=== PATIENT | male | born 1985 | race Caucasian/White ===

== ENCOUNTER 2017-04-15 12:13 | Emergency (ER) | payer OTHER ==
[2017-04-15 12:27] VITALS: BP 158/96; PULSE 67; RESP 18; TEMP 98
--- NOTE | 2017-04-15 12:48 | ED ---
General Adult HPI - General Chief complaint: Extremity Injury, Upper Stated complaint: elbow injury Time Seen by Provider: 04/15/17 12:45 Source: patient, RN notes reviewed Mode of arrival: ambulatory Limitations: no limitations - History of Present Illness Initial comments: 31-year-old male presents to the emergency department with a chief complaint of left elbow pain. Patient is long when she days ago and since he continues to have left elbow pain and swelling to use concern. Patient states her son injury from the incident. Patient states it hurts to move the elbow. Patient denies any headache injury. Patient denies any other symptoms at this time. Patient denies any recent fever, chills, shortness of breath, chest pain, back pain, abdominal pain, nausea vomiting, numbness or tingling, dysuria or hematuria, constipation or diarrhea, headaches or visual changes, or any other current symptoms. - Related Data Allergies Allergy/AdvReac Type Severity Reaction Status Date / Time No Known Allergies Allergy Verified 04/15/17 12:27 Review of Systems ROS Statement: Those systems with pertinent positive or pertinent negative responses have been documented in the HPI. ROS Other: All systems not noted in ROS Statement are negative. Past Medical History Past Medical History: No Reported History History of Any Multi-Drug Resistant Organisms: None Reported Past Surgical History: No Surgical Hx Reported Past Psychological History: No Psychological Hx Reported Smoking Status: Current every day smoker Past Alcohol Use History: Occasional Past Drug Use History: None Reported General Exam - General Exam Comments Initial Comments: General: The patient is awake and alert, in no distress, and does not appear acutely ill. Neck: The neck is supple, there is no tenderness. Cardiovascular: There is a regular rate and rhythm. No murmur, rub or gallop is appreciated. Respiratory: Lungs are clear to auscultation, respirations are non-labored, breath sounds are equal. No wheezes, stridor, rales, or rhonchi. Musculoskeletal: Sensation intact with 2+ pulses at the left upper x-ray compared from range of motion of left shoulder and left wrist. Patient does have limited range of motion of left elbow due to pain with associated swelling and tenderness over the radius proximally. Neurological: CN II-XII intact, There are no obvious motor or sensory deficits. Coordination appears grossly intact. Speech is normal. Skin: Skin is warm and dry and no rashes or lesions are noted. Psychiatric: Normal mood and affect. Limitations: no limitations Course Vital Signs 04/15/17 12:24 Temperature 98.0 F Pulse Rate 67 Respiratory 18 Rate Blood Pressure 158/96 O2 Sat by Pulse 99 Oximetry Procedures - Orthopedic Splinting/Casting Injury #1 Side: left Upper Extremity Injury Location: elbow Upper Extremity Immobilizer: posterior splint (Long-arm) Medical Decision Making - Medical Decision Making 31-year-old male presents with a history of left radial head fracture. This time patient was placed in splint.follow with Orthopedic discussed return parameters on patient's questions. All questions have been answered. He will be discharged. - Radiology Data Radiology results: image reviewed Interpreted by me: Interpreted by me: Left elbow xray: 3 view, radial head fracture, no dislocation , no bony lesions, no foreign bodies, no soft tissue damage. Waiting official radiology read. Disposition Clinical Impression: Left elbow fracture Disposition: HOME SELF-CARE Condition: Stable Instructions: Elbow Fracture in Adults (ED) Additional Instructions: Please use medication as discussed. Please follow up with family doctor if symptoms have not improved over the next two days. Please return to the emergency room if your symptoms increase or worsen or for any other concerns. Referrals: Azar Shay MD [STAFF PHYSICIAN] - 1-2 days Time of Disposition: 12:48
--- NOTE | 2017-04-15 12:50 | XR ---
EXAMINATION TYPE: XR elbow complete LT DATE OF EXAM: 04/15/2017 CLINICAL HISTORY: Fall and elbow pain TECHNIQUE: Frontal, lateral and oblique images of the left elbow are obtained. COMPARISON: None FINDINGS: There is a minimally displaced fracture of the radial head and its lateral margin extending intra-articularly. Displacement is approximately 2.5 cm bilaterally. This fracture is noncomminuted and associated with a joint effusion within the elbow. Overlying soft tissue swelling is present. IMPRESSION: Noncomminuted, minimally displaced intra-articular radial head fracture with associated s oft tissue swelling and joint effusion.
== END 2017-04-15 13:09 | disposition home or self-care (01) ==
LOC: EC 12:13
DX: S52.122A Displaced fracture of head of left radius, initial encounter for closed fracture (principal); F17.200 Nicotine dependence, unspecified, uncomplicated; W17.89XA Other fall from one level to another, initial encounter
CPT/HCPCS: 29105; 99283

== ENCOUNTER 2021-10-19 08:10 | Emergency (ER) | payer OTHER ==
[2021-10-19 08:27] VITALS: RESP 18
[2021-10-19] MEDS ORDERED: LIDOCAINE 1% INJ 10MG/ML (20 ML MDV) SQ ONE (08:55)
[2021-10-19] MEDS ORDERED: DIPH,PERTUS(ACELL)TETVAC-LF 0.5 ML VIAL IM ONE (08:55)
[2021-10-19] MEDS ORDERED: BACITRACIN OINT 1 EACH PACKET TOPICAL ONE (09:21)
--- NOTE | 2021-10-19 09:30 | ED ---
General Adult HPI - General Chief complaint: WOUNDLAC Stated complaint: Hand injury Time Seen by Provider: 10/19/21 08:48 Source: patient, RN notes reviewed Mode of arrival: ambulatory Limitations: no limitations - History of Present Illness Initial comments: This is a 36-year-old male presents emergency Department with chief complaint laceration to his left hand. Patient states that he was trying to remove the knob cut a from a knife states that he it causes a laceration of his left hand by his fifth digit. He states there is a large laceration with moderate bleeding and no paresthesias no decreased range of motion but digit she's unsure when his last tetanus was. - Related Data Home Medications Medication Instructions Recorded Confirmed No Known Home Medications 10/19/21 10/19/21 Allergies Allergy/AdvReac Type Severity Reaction Status Date / Time No Known Allergies Allergy Verified 10/19/21 09:10 Review of Systems ROS Statement: Those systems with pertinent positive or pertinent negative responses have been documented in the HPI. ROS Other: All systems not noted in ROS Statement are negative. Past Medical History Past Medical History: No Reported History History of Any Multi-Drug Resistant Organisms: None Reported Past Surgical History: No Surgical Hx Reported Past Psychological History: No Psychological Hx Reported Smoking Status: Vaper Past Alcohol Use History: Occasional Past Drug Use History: None Reported General Exam Limitations: no limitations General appearance: alert, in no apparent distress Head exam: Present: atraumatic, normocephalic, normal inspection Eye exam: Present: normal appearance, PERRL, EOMI. Absent: scleral icterus, conjunctival injection, periorbital swelling Cardiovascular Exam: Present: regular rate, normal rhythm, normal heart sounds. Absent: systolic murmur, diastolic murmur, rubs, gallop, clicks GI/Abdominal exam: Present: soft, normal bowel sounds. Absent: distended, tenderness, guarding, rebound, rigid Extremities exam: Present: other (Left hand just proximal fifth digit on the palmar aspect there is a 4 cm laceration with no tendon involvement patient has full range of motion of all digits.) Course Vital Signs 10/19/21 08:23 Temperature 98.1 F Pulse Rate 70 Respiratory 18 Rate Blood Pressure 146/99 Procedures - Laceration Laceration #1 Consent Obtained: verbal consent Indication: laceration Site: hand (Left hand) Size (cm): 4 Description: irregular Depth: simple, single layer Anesthetic Used: lidocaine 1%, without epi Anesthesia Technique: local infiltration Amount (mls): 6 Pre-repair: wound explored, irrigated extensively, deep structures intact Type of Sutures: nylon Size of Sutures: 4-0 Number of Sutures: 9 Technique: simple, interrupted Patient Tolerated Procedure: well, no complications Medical Decision Making - Medical Decision Making 36-year-old presented for laceration is. No complications we discussed wound care and return parameters. Disposition Clinical Impression: Laceration of left hand Disposition: HOME SELF-CARE Condition: Stable Instructions (If sedation given, give patient instructions): Laceration (ED), Care For Your Stitches (ED) Additional Instructions: Have sutures removed in 10-14 days.Please return to the Emergency Department if symptoms worsen or any other concerns. Is patient prescribed a controlled substance at d/c from ED?: No Referrals: None,Stated [Primary Care Provider] - 1-2 days Time of Disposition: 09:29
[2021-10-19 09:57] VITALS: BP 138/90; PULSE 68; TEMP 98
== END 2021-10-19 09:57 | disposition home or self-care (01) ==
LOC: EC 08:10
DX: S61.412A Laceration without foreign body of left hand, initial encounter (principal); F17.290 Nicotine dependence, other tobacco product, uncomplicated; W26.0XXA Contact with knife, initial encounter
CPT/HCPCS: 90715; 12002; 90471; 99282; J2001